=== PATIENT | male | born 1940 | race Caucasian/White ===

== ENCOUNTER 2018-12-14 21:46 | Inpatient (IN) | payer OTHER ==
[~2018-12-14] VITALS: Ht 177.8 cm; Wt 108.0 kg
[2018-12-14] MEDS ORDERED: fentaNYL INJECTION 100 MCG/2 ML AMP ONE (21:56)
[2018-12-14] MEDS ORDERED: MIDAZOLAM 5 MG/5 ML (VERSED) VIAL ONE (21:56)
[2018-12-14] MEDS ORDERED: NS IV 1000 ML 1,000 ML ONE (21:57)
[2018-12-14] MEDS ORDERED: EPTIFIBATIDE BOLUS 20 ML IV ONE (22:06)
[2018-12-14] MEDS ORDERED: CLOPIDOGREL 300 MG (PLAVIX) TABLET PO ONE (23:12)
[2018-12-14] MEDS ORDERED: ASPIRIN 81 MG CHEW (CHILDREN'S ASA) ONE (23:12)
[2018-12-14 23:17] LABS: HEMOGLOBIN 10.2 G/DL (13.3-17.7); RED CELL DISTRIBUTION WIDTH 14.3 % (10.0-14.5); WHITE BLOOD COUNT 6.6 10^3/uL (4.3-11.0)
[2018-12-14] MEDS ORDERED: HEParin (CATH LAB) 2,000 ML IV ONE (23:17)
[2018-12-14] MEDS ORDERED: NITRO DRIP 25000 MCG/D5W 250 ML IV ONE (23:17)
[2018-12-14] MEDS ORDERED: HEParin 1000 UNIT/ML (10ML VIAL) FOR BOLUS ONE (23:17)
--- NOTE | 2018-12-14 23:30 | Cardiology History & Physical ---
HPI-Cardiology Cardiology H&P Date of Admission 12/14/2018 Primary Care Physician Attending Physician Blanca Trevino MD, MA FACP [facility] Consulting Physician ELLIS CC: Chest pain HPI: 78 yo man, inmate at [facility], developed cp early this evening, came to ER at [facility], chest pain had resolved but was found to have persistent ST elev and was sent to this hosp for eval and treatment. He report severe midsternal pressure earlier this evening that persisted 2 hours before it resolved, was associated with some diaphoresis, radiation to shoulders and back, self- resolving. Has had pain like that for several months to years, but of less intensity than that. Has chronic, exertional shortness of breath. Denies palp or syncope. Denies ankle swelling Review of Systems-Cardiology Review of Systems Constitutional: malaise, tiredness; No weight loss, No weight gain Eyes: No vision change Ears/Nose/Throat: No ear discharge, No nasal drainage, No recent hearing loss, No ulcerations Respiratory: As described under HPI Cardiovascular: As described under HPI Gastrointestinal: No diarrhea, No nausea, No vomiting Genitourinary: No dysuria, No hematuria, No urine frequency changes Skin: No rash, No ulcerations Psychiatric/Neurological: No seizure, No focal weakness, No syncope Hematologic: No bleeding abnormalities OID-Dtzgya-Ldskjy Hx Past Medical History PMH As described under Assessment. Family Medical History Family Medical History: Does not report fam h/o early CAD or SCD Allergies and Home Medications Patient Home Medication List Home Medication List Reviewed: Yes Physical Exam-Cardiology Physical Exam Vital Signs/I&O Capillary Refill : Constitutional: AAO x 3, well-developed, well-nourished HEENT: PERRL, EOMI, hearing is well preserved; No xanthelasmas are seen Neck: carotid pulses are 2 + bilaterally, with good upstrokes Respiratory: No accessory muscle use; other (fair to good air entry bilateral) Cardiovascular: regular rate-rhythm, S1 and S2, systolic murmur (soft VAL at cardiac base) Gastrointestinal: No tender; soft; No guarding, No rebound; audible bowel sounds Extremities: No clubbing, No cyanosis, No significant edema Data Review Labs Laboratory Tests 12/14/18 23:00: White Blood Count 6.6, Red Blood Count 3.26L, Hemoglobin 10.2L, Hematocrit 30L, Mean Corpuscular Volume 93, Mean Corpuscular Hemoglobin 31, Mean Corpuscular Hemoglobin Concent 34, Red Cell Distribution Width 14.3, Platelet Count 231, Mean Platelet Volume 10.0 Laboratory Tests 12/14/18 23:00 A/P-Cardiology Assessment/Admission Diagnosis Ac [place] (troponin 14 at time of presentation to [facility]) on 12/14/18 CAD. Cath of 12/14/18: 30% ostial LMCA, 90% prox LAD stented with Alp Xience 2.75 x 18 mmHg, long and diffuse and severe stenosis of distal LAD and terminal diag that are of small caliber, mid-vessel occlusion of LCX (chronic total), diffuse and mod disease of dominant RCA, posterbasal and diaphragmatic hypo/akinesis, LVEDP 21, LVEF 45% DM II Obesity Admission Status: Inpatient Order (span 2 midnights) Reason for Inpatient Admission: Ac [place] Discussion and Recomendations * Treat with DAPT (ASA and clopidogrel) * Treat with statin * Treat with bb and WILLY-inhib if bp allows * Treatment of DM II is with the Med Svce (will consult) * Monitor labs BLANCA TREVINO MD FACP FAC CCDS Dec 14, 2018 23:30 POS
[2018-12-14 23:35] LABS: BILIRUBIN,TOTAL 0.3 MG/DL (0.1-1.0); CALCIUM 8.1 MG/DL (8.5-10.1); CREATININE SERUM 1.25 MG/DL (0.60-1.30); POTASSIUM 4.7 MMOL/L (3.6-5.0); TOTAL PROTEIN 5.8 GM/DL (6.4-8.2)
[2018-12-14 23:45] VITALS: BP 106/78
[2018-12-14] MEDS ORDERED: PATIENT MAY USE OWN MEDS, ALL PO SCH (23:45)
[2018-12-14] MEDS ORDERED: TEMAZEPAM 7.5 MG CAP (RESTORIL) PO PRN (23:45)
[2018-12-14] MEDS ORDERED: ACETAMINOPHEN 325 MG TABLET PO PRN (23:45)
[2018-12-14] MEDS ORDERED: NITROGLYCERIN 0.4 MG SL TABS BTL 25'S SL PRN (23:45)
[2018-12-15] VITALS (16 sets, daily range): BP systolic 98–141; BP diastolic 63–96
[2018-12-15] MEDS ORDERED: NS IV 1000 ML 1,000 ML ONE (01:11)
[2018-12-15] MEDS: NS IV 1000 ML 1,000 ML IV SCH ×2 (01:17→15:57)
[2018-12-15 03:34] LABS: HEMOGLOBIN 10.8 G/DL (13.3-17.7); RED CELL DISTRIBUTION WIDTH 14.5 % (10.0-14.5); WHITE BLOOD COUNT 6.4 10^3/uL (4.3-11.0)
[2018-12-15 03:52] LABS: CALCIUM 8.5 MG/DL (8.5-10.1); CREATININE SERUM 1.23 MG/DL (0.60-1.30); POTASSIUM 5.1 MMOL/L (3.6-5.0)
--- NOTE | 2018-12-15 04:28 | CARDIAC CATHETERIZATION ---
DATE OF SERVICE: 12/14/2018 CARDIAC CATHETERIZATION AND CORONARY INTERVENTION REPORT The patient is a 78-year-old man, inmate at [facility], who developed chest pain this evening. He came to the emergency room at [facility] a few hours later. By the time of presentation to the emergency room, chest pain had resolved, but ST elevations were seen in the inferior leads. Because of continuing ST elevation (no old electrocardiograms available). He was transferred to this hospital for further evaluation and treatment. He reports that he has been having intermittent chest discomfort for several months to years. He has been ignoring his symptoms. He has ST elevation and Q-wave formation in the inferior leads. He was not described any significant chest discomfort, but did have significant chest discomfort earlier today. Given all these data, we proceeded with emergency cardiac catheterization after having obtained an informed consent. DESCRIPTION OF PROCEDURE: He was brought to the cardiac catheterization laboratory. Right groin was prepared and draped in the usual sterile fashion. Lidocaine 1% was used for local anesthesia. Modified Seldinger technique was used to advance a 6-Japanese sheath into the right femoral artery. A 6-Japanese JL4 catheter was used for left coronary angiography. A 6-Japanese JR4 catheter was used for right coronary angiography. Subsequently, percutaneous intervention was carried out to left coronary system as described below. PERCUTANEOUS INTERVENTION TO THE LEFT CORONARY SYSTEM: We removed the diagnostic catheters. We gave additional 3000 units of intravenous heparin (he had arrived on heparin infusion at 1000 units per hour, which had been discontinued just prior to the procedure). We gave a double bolus of Integrilin. We used a 6-Japanese JL3.5 guide catheter. This did not result in perfect engagement, but provided adequate engagement. It did not provide any engagement (JL4 and CLS 3.5). We used a ChoICE floppy wire. The left circumflex artery is completely occluded in its mid portion following the origin of a small caliber obtuse marginal. Nevertheless, given that the right coronary artery was not exhibiting any significant stenosis and the electrocardiographic changes were in the inferior leads, we attempted the complete occlusion of the left circumflex. We made multiple attempts to cross the lesion, but were unable to do so. This is a chronic lesion and this appears to be a chronic total occlusion in the mid left circumflex artery. We felt that the culprit lesion in causing the patient's myocardial infarction today (given an elevated troponin at [facility] emergency room) for the left anterior descending artery, which was exhibiting 90% proximal stenosis and severe diffuse disease in its distal portion at the bifurcation of the left anterior descending artery with its terminal diagonal branch. We proceeded with intervention to the proximal lesion of the left anterior descending artery. We advanced the choice floppy wire across the lesion and the tip was placed in the distal vessel. We carried out balloon angioplasty with Emerge 2.0 x 20 mm balloon. This was removed and we then advanced Alpine Xience 2.75 x 18 mm stent to the lesion. This was carefully positioned to cover the lesion. The stent remained wholly in the left anterior descending (from its proximal to a small portion. This was deployed at 16 atmospheres. Subsequent angiography revealed 0% residual stenosis at the previous site of 90% stenosis. As stated, the distal left anterior descending artery exhibits very diffuse and long stenosis, which is 80% to 90% and involves the distal left anterior descending and its terminal diagonal branch. This is a long complex lesion and does not appear suitable for percutaneous intervention or bypass, given the small caliber. We did not attempt intervention to it at this time. The patient, at the conclusion of the procedure, is asymptomatic and hemodynamically and clinically stable. Following completion of the interventional procedure, we did carry out left heart catheterization, left ventricular angiography that is described below. The catheter was removed and we carried out angiography of the right femoral artery through the sheath and Mynx was used to achieve hemostasis. He tolerated the procedure well. HEMODYNAMICS: Left ventricular end-diastolic pressure following coronary angiography was 21 mmHg. There was no significant pressure gradient on pullback across the aortic valve. Ascending aortic pressure was 103/57 with a mean of 77 mmHg. CORONARY ANGIOGRAPHY: There is diffuse coronary calcification. Left main coronary artery has 30% ostial and proximal stenosis. Left anterior descending artery had 90% proximal stenosis that was successfully stented with Alpine Xience 2.75 x 18 mm stent (deployed at 16 atmospheres) that resulted in resolution of the stenosis to 0% residual. The distal left anterior descending artery and the distal diagonal branch have long severe diffuse stenoses of 80% to 90%. The vessel here is of small caliber and does not appear to be amenable to percutaneous intervention. The right coronary artery is chronically occluded in its mid portion and attempt at crossing it with a wire was unsuccessful. The right coronary artery is dominant and has diffuse moderate disease with stenoses of up to 40% at several spots. LEFT VENTRICULAR ANGIOGRAPHY: Left ventricular angiography was carried out in the right anterior oblique projection. Global left ventricular systolic function is impaired. There is posterobasal and diaphragmatic akinesis. Left ventricular ejection fraction approximately 45%. CONCLUSIONS: 1. Coronary artery disease: 90% proximal stenosis of the LAD that was successfully stented with Alpine Xience 2.75 x 18 mm stent; diffuse and severe disease of small caliber distal left anterior descending its terminal diagonal; mid vessel occlusion of the left circumflex that appears to be a chronic total occlusion; mod diffuse disease of the right coronary artery. 2. Elevated left ventricular end-diastolic pressure. 3. Impairment of global left ventricular systolic function with ejection fraction of 45%. 4. Posterobasal and diaphragmatic akinesis. DISCUSSION AND RECOMMENDATIONS: We are initiating dual antiplatelet therapy. If blood pressure, so allows, we will add beta-blockers and WILLY inhibitors, as well. Statin therapy is also being initiated. For management of diabetes, we will consult the medical service. Job ID: [id number] DocumentID: [id number] Dictated Date: 12/14/2018 23:20:11 Exhaust Equipment Operator Date: 12/15/2018 04:28:34 Dictated By: CAMMIE AMAYA MD, MA, FACP, FACC, MTDD
[2018-12-15] MEDS: inSUlin ASPART (NovoLOG) 1 UNIT/0.01 ML (CHARGE PER UNIT) SC SCH ×4 (04:57→19:53)
[2018-12-15] MEDS: lisINopril 5 MG (PRINIVIL) TABLET PO SCH (08:35)
[2018-12-15] MEDS: CLOPIDOGREL 75 MG (PLAVIX) TABLET PO SCH (08:35)
[2018-12-15] MEDS: ASPIRIN 81 MG CHEW (CHILDREN'S ASA) PO SCH (08:36)
--- NOTE | 2018-12-15 08:39 | Consultation - Hospitalist ---
HPI History of Present Illness: HPI/Chief Complaint Patient is a 70-year-old male with a past medical history of insulin- dependent diabetes type II who presented to outside ER due to chest pain. He was found to have ST elevation on his EKGs and an elevated troponin. He was transferred here for cardiac evaluation and Bee Keeper. He was taken to the Bee Keeper emergently last night where stent was deployed. This morning he states he is feeling well he denies any chest pain. He denies any history of cardiac issues. He does report that he takes insulin, metformin, glyburide for his diabetes. He is unsure of his other medications or his doses. Date Seen 12/15/18 Attending Physician Blanca Trevino MD Facp Facc Ccds PCP Referring Physician Dr Trevino Date of Admission Dec 14, 2018 at 23:39 Home Medications & Allergies Home Medications Reviewed patient Home Medication Reconciliation performed by pharmacy medication reconciliations emergency department technician and/or nursing. Patients Allergies have been reviewed. Allergies Allergies Coded Allergies No Known Drug Allergies (Gognnmmnhl64/8/19) Past Kounqjd-Kgpslv-Pfbakf Hx Past Med/Social Hx: Reviewed Nursing Past Med/Soc Hx Patient Social History Employed/Student: unemployed (prisoner at [employer]) Smoking Status: Former Smoker Recent Foreign Travel: No Contact w/other who traveled: No Recent Infectious Disease Expo: No Past Medical History Surgeries: Appendectomy, Coronary Stent Review of Systems Constitutional: No chills, No fever EENTM: no symptoms reported Respiratory: No cough; short of breath Cardiovascular: chest pain; No edema, No Hx of Intervention, No palpitations Gastrointestinal: No abdominal pain, No nausea, No vomiting Genitourinary: no symptoms reported Musculoskeletal: no symptoms reported Skin: no symptoms reported Psychiatric/Neurological: No Symptoms Reported Physical Exam Physical Exam Vital Signs Vital Signs - First Documented Capillary Refill : Less Than 3 Seconds Height, Weight, BMI Height: '" Weight: lbs. oz. kg; 34.47 BMI Method: General Appearance: No Apparent Distress, WD/WN, Obese, Other (two police escorts present at bedside) HEENT: Moist Mucous Membranes; No Scleral Icterus (L), No Scleral Icterus (R) Neck: Supple; No JVD, No Thyromegaly Respiratory: Lungs Clear, No Accessory Muscle Use, No Respiratory Distress Cardiovascular: Regular Rate, Rhythm, No Murmur Gastrointestinal: Normal Bowel Sounds, Soft Extremity: Non Tender, Pedal Edema (trace), Other (left wrist and left ankle handcuffed to arm rails of bed) Neurologic/Psychiatric: Alert, Oriented x3, Normal Mood/Affect; No Aphasia, No Facial Droop Skin: Normal Color, Warm/Dry Results Results/Procedures Labs Laboratory Tests 12/14/18 23:00 12/15/18 03:10 Patient resulted labs reviewed. Assessment/Plan Assessment and Plan Assess & Plan/Chief Complaint STEMI Management per cardiology Stent deployed in LAD On dual antiplatelets therapy Insulin-dependent diabetes type II Med rec from correction[facility] obtained Will restart home insulin, fasting blood sugar only 112 so will hold glipizide and metformin Continue sliding scale A1c ordered Hypertension Pressure well controlled with current regimen Hypothyroidism Resume home Synthroid Diagnosis/Problems Diagnosis/Problems (1) Essential (primary) hypertension Status: Chronic (2) Insulin dependent diabetes mellitus Status: Chronic (3) Hypothyroidism Status: Chronic Qualifiers: Hypothyroidism type: unspecified Qualified Codes: E03.9 - Hypothyroidism, unspecified (4) Acute CT Status: Acute Qualifiers: Myocardial infarction type: ST elevation myocardial infarction Involved coronary artery: LAD coronary artery Qualified Codes: I21.02 - ST elevation (STEMI) myocardial infarction involving left anterior descending coronary artery ROOSEVELT SHANKAR MD Dec 15, 2018 08:39 POS
[2018-12-15] MEDS ORDERED: LEVOTHYROXINE 50 MCG (LEVOTHROID) TAB PO NR (09:02)
[2018-12-15] MEDS: inSUlin NPH/REG (NovoLIN 70/30) CHARGE PER UNIT SQ SCH ×2 (10:52→20:10)
--- NOTE | 2018-12-15 16:30 | Progress Note - Cardiology ---
Cardiology SOAP Progress Note Subjective: No cp or palp or syncope Generally feels quite well Objective: I&O/Vital Signs 12/15/18 12/15/18 12/15/18 12/15/18 07:00 07:30 07:30 07:41 Temp 36.6 Pulse 77 Pulse Ox 97 97 O2 Delivery Room Air Room Air 12/15/18 12/15/18 12/15/18 12/15/18 08:00 12:00 12:00 12:00 Temp 37.6 Pulse 77 79 Resp 25 14 B/P (MAP) 124/73 (90) 128/66 (86) Pulse Ox 96 97 96 O2 Delivery Nasal Cannula Room Air Nasal Cannula O2 Flow Rate 2.00 2.00 12/15/18 12/15/18 12/15/18 13:00 16:00 16:06 Pulse 77 80 Resp 32 B/P (MAP) 123/71 (88) Pulse Ox 96 97 O2 Delivery Nasal Cannula Room Air O2 Flow Rate 2.00 Groin site without hematoma: Yes Bruising: mild bruising Constitutional: AAO x 3, well-developed, well-nourished Respiratory: No accessory muscle use; other (fair to good air entry bilateral) Cardiovascular: regular rate-rhythm, S1 and S2, systolic murmur (soft VAL at cardiac base) Gastrointestional: No tender; soft; No guarding, No rebound; audible bowel sounds Extremities: No clubbing, No cyanosis, No significant edema Neurologic/Psychiatric: oriented x 3, other (he moves all limbs equally) Skin: No rash on exposed areas, No ulcerations on exposed areas Results/Procedures: Labs Laboratory Tests 12/14/18 23:00: White Blood Count 6.6, Red Blood Count 3.26L, Hemoglobin 10.2L, Hematocrit 30L, Mean Corpuscular Volume 93, Mean Corpuscular Hemoglobin 31, Mean Corpuscular Hemoglobin Concent 34, Red Cell Distribution Width 14.3, Platelet Count 231, Mean Platelet Volume 10.0, Sodium Level 135, Potassium Level 4.7, Chloride Level 107, Carbon Dioxide Level 19L, Anion Gap 9, Blood Urea Nitrogen 28H, Creatinine 1.25, Estimat Glomerular Filtration Rate 56, BUN/Creatinine Ratio 22, Glucose Level 100, Calcium Level 8.1L, Corrected Calcium 8.9, Total Bilirubin 0.3, Aspartate Amino Transf (AST/SGOT) 38H, Alanine Aminotransferase (ALT/SGPT) 45, Alkaline Phosphatase 49, Total Protein 5.8L, Albumin 3.0L, Thyroid Stimulating Hormone (TSH) 2.11 12/15/18 03:10: White Blood Count 6.4, Red Blood Count 3.48L, Hemoglobin 10.8L, Hematocrit 33L, Mean Corpuscular Volume 94, Mean Corpuscular Hemoglobin 31, Mean Corpuscular He moglobin Concent 33, Red Cell Distribution Width 14.5, Platelet Count 248, Mean Platelet Volume 10.0, Sodium Level 138, Potassium Level 5.1H, Chloride Level 108H, Carbon Dioxide Level 19L, Anion Gap 11, Blood Urea Nitrogen 26H, Creatinine 1.23, Estimat Glomerular Filtration Rate 57, BUN/Creatinine Ratio 21, Glucose Level 112H, Calcium Level 8.5 12/15/18 08:28: Glucometer 173H 12/15/18 13:58: Glucometer 226H Laboratory Tests 12/14/18 23:00 12/15/18 03:10 A/P: Assessment: Ac [place] (troponin 14 at time of presentation to [facility]) on 12/14/18 CAD. Cath of 12/14/18: 30% ostial LMCA, 90% prox LAD stented with Alp Xience 2.75 x 18 mmHg, long and diffuse and severe stenosis of distal LAD and terminal diag that are of small caliber, mid-vessel occlusion of LCX (chronic total), diffuse and mod disease of dominant RCA, posterbasal and diaphragmatic hypo/akinesis, LVEDP 21, LVEF 45% DM II Obesity Plan: * I discussed in detail with him the findings at cath and the interventions undertaken * Advised compliance with med * I discussed his case with Dr Min of the Hospitalist Sho this am * iv furosemide today * Echo * Monitor labs CAMMIE AMAYA MD [facility]S Dec 15, 2018 16:30 POS
[2018-12-16] VITALS (9 sets, daily range): BP systolic 114–135; BP diastolic 68–98
[2018-12-16 04:06] LABS: BASOPHILS % (AUTO) 0 % (0-10); EOSINOPHILS # (AUTO) 0.2 10^3/uL (0.0-0.3); EOSINOPHILS % (AUTO) 3 % (0-10); HEMATOCRIT 35 % (40-54); HEMOGLOBIN 11.5 G/DL (13.3-17.7); LYMPHOCYTES % (AUTO) 24 % (12-44); MEAN CORPUSCULAR HEMOGLOBIN 31 PG (25-34); MEAN CORPUSCULAR HGB CONC 33 G/DL (32-36); MEAN CORPUSCULAR VOLUME 94 FL (80-99); MEAN PLATELET VOLUME 10.1 FL (7.4-10.4); MONOCYTES % (AUTO) 12 % (0-12); NEUTROPHILS # (AUTO) 5.1 X 10^3 (1.8-7.8); NEUTROPHILS % (AUTO) 61 % (42-75); PLATELET COUNT 289 10^3/uL (130-400); WHITE BLOOD COUNT 8.3 10^3/uL (4.3-11.0)
[2018-12-16 04:26] LABS: BUN/CREATININE RATIO 19; CALCIUM 9.1 MG/DL (8.5-10.1); CARBON DIOXIDE 20 MMOL/L (21-32); CHLORIDE 105 MMOL/L (98-107); CHOLESTEROL 101 MG/DL (< 200); CREATININE SERUM 1.12 MG/DL (0.60-1.30); GFR ESTIMATED > 60; GLUCOSE 77 MG/DL (70-105); HDL CHOLESTEROL 23 MG/DL (40-60); MAGNESIUM 1.7 MG/DL (1.6-2.4); POTASSIUM 4.7 MMOL/L (3.6-5.0); SODIUM 138 MMOL/L (135-145); TRIGLYCERIDES 100 MG/DL (<150); VLDL CHOLESTEROL 20 MG/DL (5-40)
[2018-12-16] MEDS: inSUlin ASPART (NovoLOG) 1 UNIT/0.01 ML (CHARGE PER UNIT) SC SCH ×3 (05:51→15:46)
[2018-12-16] MEDS ORDERED: LEVOTHYROXINE 50 MCG (LEVOTHROID) TAB PO ONE (06:30)
[2018-12-16] MEDS: inSUlin NPH/REG (NovoLIN 70/30) CHARGE PER UNIT SQ SCH (07:46)
[2018-12-16] MEDS: lisINopril 5 MG (PRINIVIL) TABLET PO SCH (07:46)
[2018-12-16] MEDS: ASPIRIN 81 MG CHEW (CHILDREN'S ASA) PO SCH (07:46)
[2018-12-16] MEDS: CLOPIDOGREL 75 MG (PLAVIX) TABLET PO SCH (07:46)
--- NOTE | 2018-12-16 10:07 | Progress Note - Hospitalist ---
Subjective HPI/CC On Admission Date Seen by Provider: Dec 16, 2018 Time Seen by Provider: 09:00 Patient is a 70-year-old male with a past medical history of insulin- dependent diabetes type II who presented to outside ER due to chest pain. He was found to have ST elevation on his EKGs and an elevated troponin. He was tra nsferred here for cardiac evaluation and Clinical Cytogenetics Director. He was taken to the Clinical Cytogenetics Director emergently last night where stent was deployed. This morning he states he is feeling well he denies any chest pain. He denies any history of cardiac issues. He does report that he takes insulin, metformin, glyburide for his diabetes. He is unsure of his other medications or his doses. Subjective/Events-last exam Pt reports doing well. No complaints. [facility] guards at bedside an d are unsure if he will discharge to [place] or [place] at this time. Objective Exam Vital Signs Vital Signs Date Time Temp Pulse Resp B/P (MAP) Pulse Ox O2 Delivery O2 Flow Rate FiO2 12/16/18 08:00 36.3 12/16/18 08:00 93 33 114/71 (85) 93 Room Air 12/16/18 05:00 2.00 Capillary Refill : Less Than 3 Seconds General Appearance: No Apparent Distress, Obese Respiratory: Lungs Clear, No Respiratory Distress Cardiovascular: Regular Rate, Rhythm, No Murmur Neurologic/Psychiatric: Alert, Oriented x3 Results/Procedures Lab Laboratory Tests 12/16/18 03:25 12/16/18 03:27 Patient resulted labs reviewed. Assessment/Plan Assessment and Plan Assess & Plan/Chief Complaint STEMI Management per cardiology Stent deployed in LAD On dual antiplatelets therapy Discussed importance of compliance with meds Insulin-dependent diabetes type II Continue home basal insulin Continue sliding scale Hypertension Pressure well controlled with current regimen Hypothyroidism Resume home Synthroid Diagnosis/Problems Diagnosis/Problems (1) Essential (primary) hypertension Status: Chronic (2) Insulin dependent diabetes mellitus Status: Chronic (3) Hypothyroidism Status: Chronic Qualifiers: Hypothyroidism type: unspecified Qualified Codes: E03.9 - Hypothyroidism, unspecified (4) Acute RI Status: Acute Qualifiers: Myocardial infarction type: ST elevation myocardial infarction Involved coronary artery: LAD coronary artery Qualified Codes: I21.02 - ST elevation (STEMI) myocardial infarction involving left anterior descending coronary artery ROOSEVELT SHANKAR MD Dec 16, 2018 10:06 am POS
[2018-12-16] MEDS ORDERED: LISI-556 PO (13:05)
[2018-12-16] MEDS ORDERED: ATOR80TA76 PO (13:05)
[2018-12-16] MEDS ORDERED: CLOP75TA28 PO (13:05)
[2018-12-16] MEDS ORDERED: Nitroglycerin SL (13:05)
[2018-12-16] MEDS ORDERED: METO-387 PO (13:05)
[2018-12-16] MEDS ORDERED: ASPI-999 PO (13:05)
--- NOTE | 2018-12-16 13:08 | Discharge Inst-Post CATH ---
Discharge Inst-CATH/EP Post Cardiac Cath/EP D/C Inst Follow Up/Plan F/u with Dr Trevino in 2 weeks ACTIVITY * Go Home directly and rest. * Limit activity of the leg (or wrist if it was used) for 7 days including aerobics, swimming, jogging, bicycling, etc. * Restrict stair-climbing for 7 days if possible, if not, climb up with your no n-cath leg, then bring together on the same step. * Avoid lifting, pushing, pulling or excessive movement of the affected ext remity for 7 days. * Customary sexual activity may be resumed after 2 days-use caution not to use a position that strains or causes pain to the affected extremity. * No driving for 24 hours. * NO SMOKING. * Avoid straining for bowel movements for 7 days. * Gentle walking on level ground is allowed. * Returning to work will depend on the type of procedure and the results. Your doctor will discuss this with you. CALL YOUR DOCTOR FOR ANY OF THE FOLLOWING: *If bleeding from the puncture site occurs- Apply gentle pressure to site with clean cloth and call your doctor or EMS. * If a knot or lump forms under the skin, increases in size, or causes pain. * If bruising appears to be worsening or moving further down your leg instead of disappearing. * Temperature above 101 F. CARE OF YOUR GROIN INCISION; * Bruising or purple discoloration of the skin near the puncture site is common. * You may shower only, no bathtub bathing for 5 days. Be careful to avoid slipping as your leg may feel stiff. * If a closure device was used on your femoral artery, please see the attached guide regarding care of the device and your leg. * Leave dressing on FOR 24 hours. CARE OF YOUR WRIST INCISION; * Bruising or purple discoloration of the skin near the puncture site is common. * You may shower. * DO NOT submerge wrist. * Leave dressing on FOR 24 hours. CAMMIE TREVINO MD [facility] CCDS Dec 16, 2018 13:08 POS
[2018-12-16] MEDS ORDERED: METO-352 PO (13:10)
--- NOTE | 2018-12-16 13:12 | Discharge Inst-Cardiology ---
Discharge Inst-Cardiac Discharge Medications New Medications: PENDING: Metoprolol Succinate (Toprol Xl) 50 Mg Tab.er.24h 50 MG PO DAILY, #90 TAB 3 Refills PENDING: Aspirin (Aspirin) 81 Mg Tab.chew 81 MG PO DAILY for 90 Days, #90 TAB 3 Refills PENDING: Atorvastatin Calcium (Atorvastatin Calcium) 80 Mg Tablet 80 MG PO HS for 90 Days, #90 TAB 3 Refills PENDING: Clopidogrel Bisulfate (Clopidogrel) 75 Mg Tablet 75 MG PO DAILY for 90 Days, #90 TAB 3 Refills PENDING: Lisinopril (Lisinopril) 5 Mg Tablet 5 MG PO DAILY for 90 Days, #90 TAB PENDING: [Nitroglycerin] () 0.4 MG BTL 0 MG SL NEEDED PRN for chest pain, #25 EA 3 Refills Patient Instructions Patient Instructions: Insulin and treatment of diabetes and follow up as directed by your Primary Care Physician Follow up with Dr Trevino in Cardiology follow up in 2 weeks Orders-Post D/C & Referrals Pneu Vac Indicated: Yes CAMMIE TREVINO MD FACP FAC CCDS Dec 16, 2018 13:11 POS
--- NOTE | 2018-12-16 13:19 | Progress Note - Cardiology ---
Cardiology SOAP Progress Note Subjective: No cp or palp or syncope or shortness of breath or groin or leg discomfort Objective: I&O/Vital Signs 12/16/18 12/16/18 12/16/18 12/16/18 07:00 07:51 07:53 08:00 Pulse 83 93 Resp 33 B/P (MAP) 114/71 (85) Pulse Ox 97 97 93 O2 Delivery Room Air Room Air Room Air 12/16/18 12/16/18 12/16/18 12/16/18 08:00 11:20 12:00 12:00 Temp 36.3 36.9 Pulse 86 Resp 14 B/P (MAP) 135/94 (108) Pulse Ox 97 O2 Delivery Room Air Room Air 12/16/18 12/16/18 12/16/18 12/16/18 12:24 13:00 15:20 16:44 Temp 36.9 36.9 36.9 Pulse 86 86 Resp 14 B/P (MAP) 135/94 Pulse Ox 97 O2 Delivery Room Air 12/16/18 00:00 Intake Total 1800 ml Output Total 1600 ml Balance 200 ml Groin site without hematoma: Yes Bruising: mild bruising Constitutional: AAO x 3, well-developed, well-nourished Respiratory: No accessory muscle use; other (fair to good air entry bilateral) Cardiovascular: regular rate-rhythm, S1 and S2, systolic murmur (soft VAL at cardiac base) Gastrointestional: No tender; soft; No guarding, No rebound; audible bowel sounds Extremities: No clubbing, No cyanosis, No significant edema Neurologic/Psychiatric: oriented x 3, other (he moves all limbs equally) Skin: No rash on exposed areas, No ulcerations on exposed areas Results/Procedures: Labs Laboratory Tests 12/15/18 19:43: Glucometer 167H 12/16/18 03:25: Sodium Level 138, Potassium Level 4.7, Chloride Level 105, Carbon Dioxide Level 20L, Anion Gap 13, Blood Urea Nitrogen 21H, Creatinine 1.12, Estimat Glomerular Filtration Rate > 60, BUN/Creatinine Ratio 19, Glucose Level 77, Calcium Level 9.1, Magnesium Level 1.7, Triglycerides Level 100, Cholesterol Level 101, LDL Cholesterol Direct 76, VLDL Cholesterol 20, HDL Cholesterol 23L 12/16/18 03:27: White Blood Count 8.3, Red Blood Count 3.73L, Hemoglobin 11.5L, Hematocrit 35L, Mean Corpuscular Volume 94, Mean Corpuscular Hemoglobin 31, Mean Corpuscular Hemoglobin Concent 33, Red Cell Distribution Width 14.0, Platelet Count 289, Mean Platelet Volume 10.1, Neutrophils (%) (Auto) 61, Lymphocytes (%) (Auto) 24, Monocytes (%) (Auto) 12, Eosinophils (%) (Auto) 3, Basophils (%) (Auto) 0, Neutrophils # (Auto) 5.1, Lymphocytes # (Auto) 2.0, Monocytes # (Auto) 1.0, Eosinophils # (Auto) 0.2, Basophils # (Auto) 0.0 Laboratory Tests 12/14/18 23:00 12/15/18 03:10 12/16/18 03:25 12/16/18 03:27 A/P: Assessment: Ac DC (troponin 14 at time of presentation to [facility]) on 12/14/18 CAD. Cath of 12/14/18: 30% ostial LMCA, 90% prox LAD stented with Alp Xience 2.75 x 18 mmHg, long and diffuse and severe stenosis of distal LAD and terminal diag that are of small caliber, mid-vessel occlusion of LCX (chronic total), diffuse and mod disease of dominant RCA, posterbasal and diaphragmatic hypo/akinesis, LVEDP 21, LVEF 45% Echo of 12/16/18: LVEF 50%, inferolateral akinesis, mild , RVSP 35 mmHg DM II Obesity Plan: * We reviewed and discussed his cardiac findings and interventions undertaken * We ensured that skilled nursing authorities will be able to provide all his meds * We advised establishment of Primary Care for treatment and f/u on DM II * For cardiac care, we have advised f/u at our office in 2 weeks (or earlier if needed) * We advised return to ER in case of recurrence of symptoms or new symptoms CAMMIE AMAYA MD FACP FAC CCDS Dec 16, 2018 13:19 POS
--- NOTE | 2018-12-16 17:47 | Cardiology Discharge Summary ---
Diagnosis/Chief Complaint Date of Admission Dec 14, 2018 at 23:39 Date of Discharge Dec 16, 2018 at 16:12 Final/Discharge Diagnosis Ac MA (troponin 14 at time of presentation to [facility]) on 12/14/18 CAD. Cath of 12/14/18: 30% ostial LMCA, 90% prox LAD stented with Alp Xience 2.75 x 18 mmHg, long and diffuse and severe stenosis of distal LAD and terminal diag that are of small caliber, mid-vessel occlusion of LCX (chronic total), diffuse and mod disease of dominant RCA, posterbasal and diaphragmatic hypo/akinesis, LVEDP 21, LVEF 45% Echo of 12/16/18: LVEF 50%, inferolateral akinesis, mild , RVSP 35 mmHg DM II Obesity Chief Complaint/HPI Chief Complaint/HPI CC: Chest pain HPI: 78 yo man, inmate at [facility], developed cp early this evening, came to ER at [facility], chest pain had resolved but was found to have persistent ST elev and was sent to this hosp for eval and treatment. He report severe midsternal pressure earlier this evening that persisted 2 hours before it resolved, was associated with some diaphoresis, radiation to shoulders and back, self- resolving. Has had pain like that for several months to years, but of less intensity than that. Has chronic, exertional shortness of breath. Denies palp or syncope. Denies ankle swelling For condition at discharge, please see our Progress Note of today's date (12/16/18) We discussed the following with him: * We reviewed and discussed his cardiac findings and interventions undertaken * We ensured that half-way authorities will be able to provide all his meds * We advised establishment of Primary Care for treatment and f/u on DM II * For cardiac care, we have advised f/u at our office in 2 weeks (or earlier if needed) * We advised return to ER in case of recurrence of symptoms or new symptoms Time spent in seeing patient and arranging discharge: 12:35 - 13:19 Discharge Summary Procedures None. 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 Patients Allergies have been reviewed. Discharge Home Medications: Reviewed and agree with Discharge Medication list on patient's Discharge Instruction sheet Instructions to patient/family F/u with Dr Uriel in 2 weeks CAMMIE AMAYA MD FACP FAC CCDS Dec 16, 2018 17:46 POS
[2018-12-17] MEDS ORDERED: meTOproloL SUCCINATE 50 MG (TOPROL XL) TAB PO SCH (09:00)
== END 2018-12-16 16:12 | DRG 247 ==
LOC: CATH 21:46 → ICU 23:39
PROVIDERS: ADMIT Internal Medicine Cardiovascular Disease; ATTEND Internal Medicine Cardiovascular Disease
PROC: 4A023N7 Measurement of Cardiac Sampling and Pressure, Left Heart, Percutaneous Approach (ICD-10-PCS; principal; 2018-12-15)
PROC: B2111ZZ Fluoroscopy of Multiple Coronary Arteries using Low Osmolar Contrast (ICD-10-PCS; principal; 2018-12-15)
PROC: B2151ZZ Fluoroscopy of Left Heart using Low Osmolar Contrast (ICD-10-PCS; principal; 2018-12-15)
PROC: 027034Z Dilation of Coronary Artery, One Artery with Drug-eluting Intraluminal Device, Percutaneous Approach (ICD-10-PCS; principal; 2018-12-15)
DX: I21.3 ST elevation (STEMI) myocardial infarction of unspecified site (principal); I25.10 Atherosclerotic heart disease of native coronary artery without angina pectoris; E11.9 Type 2 diabetes mellitus without complications; E66.9 Obesity, unspecified; E03.9 Hypothyroidism, unspecified; I10 Essential (primary) hypertension; Z68.34 Body mass index [BMI] 34.0-34.9, adult
CPT/HCPCS: 36415; 80048; 80053; 80061; 82962; 83735; 84443; 85025; 85027; 93005; 93306; 93458